=== PATIENT | female | born 1980 | race Caucasian/White ===

== ENCOUNTER 2024-11-07 18:58 | Emergency (ER) | payer BC ==
[~2024-11-07] VITALS: Ht 162.6 cm; Wt 86.2 kg
[2024-11-07 19:08] VITALS: TEMP 98.8
[2024-11-07] MEDS ORDERED: ONDANSETRON HCL/PF 4 MG/2 ML VIAL ONE (19:55)
[2024-11-07] MEDS ORDERED: MORPHINE SULFATE INJ 4 MG/ML DISP.SYRIN ONE ×2 (19:56→21:43)
[2024-11-07] MEDS ORDERED: LORAZEPAM INJ 2 MG/ML VIAL ONE (19:56)
[2024-11-07 19:57] LABS: PLATELET COUNT (AUTO) 563 K/uL (150-450); RED BLOOD CELL COUNT(AUTO) 4.81 MIL/uL (4.0-5.2); RED CELL DISTRIBUTION WIDTH 16.7 % (11.5-15.0); WHITE BLOOD COUNT (AUTO) 19.3 K/uL (4.3-11.0)
[2024-11-07] MEDS ORDERED: IOHEXOL-300 100 ML VIAL IV ONE (20:02)
[2024-11-07] MEDS ORDERED: IV NS 0.9% 250 ML IV ONE (20:02)
[2024-11-07] MEDS: MORPHINE SULFATE INJ 2 MG/ML DISP.SYRIN IV ONE ×2 (20:04→21:45)
[2024-11-07] MEDS: LORAZEPAM INJ 2 MG/ML VIAL IV ONE (20:04)
[2024-11-07] MEDS: IV NS 0.9% 1,000 ML BAG IV ONE (20:04)
[2024-11-07] MEDS: ONDANSETRON HCL/PF 4 MG/2 ML VIAL IVP ONE (20:04)
[2024-11-07 20:05] LABS: CALCIUM, SERUM 9.1 mg/dL (8.5-10.1); CREATININE 0.8 mg/dL (0.6-1.3); SODIUM SERUM 129.0 mmol/L (136-145); UREA NITROGEN, BLOOD 18.0 mg/dL (7-18)
[2024-11-07 20:11] LABS: ASPARTATE AMINOTRANSFERASE 20.0 U/L (15-37); TOTAL PROTEIN, SERUM 7.6 g/dL (6.4-8.2)
[2024-11-07 20:12] LABS: LACTIC ACID 1.3 mmol/L (0.4-2.0)
[2024-11-07 22:00] LABS: APPEARANCE,URINE CLEAR (CLEAR); BLOOD, URINE NEGATIVE Ery/uL (NEGATIVE); LEUKOCYTE ESTERASE ,URINE 1+ (NEGATIVE); NITRITE, URINE NEGATIVE (NEGATIVE); UGLUCOSE NEGATIVE (NEGATIVE)
[2024-11-07] MEDS ORDERED: BACLOFEN (10 MG) 10 MG TABLET ONE (22:09)
[2024-11-07] MEDS: BACLOFEN (10 MG) 10 MG TABLET PO ONE (22:11)
[2024-11-07 22:27] LABS: ADD URINE CULTURE YES; SQUAMOUS EPITHELIAL CELL,UR Moderate /HPF (None Seen)
[2024-11-07] MEDS ORDERED: SULF1TAB48 PO (22:43)
[2024-11-07] MEDS ORDERED: BACL5TAB PO (22:43)
[2024-11-07 22:56] VITALS: BP 154/99; O2SAT 97
== END 2024-11-07 23:52 | disposition home or self-care (01) ==
LOC: ER 19:04
DX: N39.0 Urinary tract infection, site not specified (principal); R11.2 Nausea with vomiting, unspecified; Z88.0 Allergy status to penicillin; Z96.641 Presence of right artificial hip joint; Z87.19 Personal history of other diseases of the digestive system; Z86.59 Personal history of other mental and behavioral disorders; Z88.8 Allergy status to other drugs, medicaments and biological substances
CPT/HCPCS: 99285; 74177; 96374; 96375; 96361; 96376; 85025; 80048; 83605; 83690; 80076; 81001; 36415; J2060; J1200; J2270 ×2; J2405; J7050; Q9967; 87086-TC